=== PATIENT | male | born 1960 | race Caucasian/White ===

== ENCOUNTER 2024-10-11 11:10 | Emergency (ER) | payer MEDICARE, MEDICAID, SELFPAY ==
[2024-10-11] VITALS (30 sets, daily range): BP systolic 121–152; BP diastolic 32–116; PULSE 54–119; RESP 6–25; TEMP 36.9; O2SAT 94–99
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
[2024-10-11 11:36] LABS: Abs Immature Grans 0.02 10^3/uL (0.0-0.06); HCT 36.0 % (40.0-50.0); HGB 12.6 g/dL (13.5-17.5); Immature Grans % 0.3 %; MCH 31.1 pg (27.0-33.0); MCHC 35.0 % (32.0-36.0); MCV 89 fL (80-95); MPV 9.6 fL (8.0-11.0); Platelet Count 227 10^3/uL (130-400); RBC 4.05 10^6/uL (4.36-5.78); RDW 12.2 % (11.8-14.1); RDW-SD 39.7 fL; WBC 5.90 10^3/uL (4.4-10.8)
[2024-10-11 11:47] LABS: INR 1.1 (0.9-1.1); PTT Activated 24.3 sec (20.6-30.2); Prothrombin Time 10.9 sec (9.1-11.1)
[2024-10-11 11:50] LABS: ALT 24 U/L (16-63); AST 15 U/L (15-37); Albumin 3.8 g/dL (3.4-5.0); Alkaline Phosphatase 81 U/L (46-116); Anion Gap 8.6 mmol/L (3-11); BUN 9 mg/dL (7-18); Bilirubin, Total 0.5 mg/dL (0.2-1.0); CO2 27.4 mmol/L (21.0-32.0); Calcium 9.0 mg/dL (8.5-10.1); Chloride 106 mmol/L (98-107); Estimated GFR 94.19 (mL/min/1.73m2); Glucose 90 mg/dL (74-106); Lipase 24 U/L (<78); Potassium 3.2 mmol/L (3.5-5.1); Sodium 142 mmol/L (136-145); Total Protein 6.6 g/dL (6.4-8.2)
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
--- NOTE | 2024-10-11 12:00 | DI.RAD_ITS ---
Exam(s) XR SHOULDER RT COMPLETE 2+V EXAM: XR SHOULDER RT COMPLETE 2+V CLINICAL HISTORY: right shoulder pain, wonky findings. TECHNIQUE: 2D digital imaging was performed. COMPARISON: No exams were available for comparison FINDINGS: Five views No evidence of fracture or dislocation. Very small calcifications noted in soft tissues adjacent to the greater tuberosity which has more the appearance of tendon calcification than a fracture fragment. There is mild diminution of the subacromial space. There are moderate degenerative changes in the glenohumeral joint including an osteophyte on the inferior articular surface of the humeral head. There is a sclerotic bone lesion in the humeral neck which is probably a benign bone island There is no dislocation of the ipsilateral AC joint nor fracture of the clavicle. However, there is an irregularity of the acromion noted. I suspect this is most probably incidental os acromiale, but given the trauma and pain in the right shoulder 1 might consider further imaging with CT scan. IMPRESSION: Findings as above. Correlation with any pain over the acromion recommended. If clinically indicated follow-up CT scan can be performed to differentiate acromial fracture from os acromiale in this acute trauma setting DATA REPOSITORY: RADIATION DOSE DELIVERED:
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
== END 2024-10-11 14:54 | disposition home or self-care (01) ==
PROVIDERS: Emergency Provider Student in an Organized Health Care Education/Training Program; PCP Internal Medicine
DX: S40.011A Contusion of right shoulder, initial encounter (principal); R51.9 Headache, unspecified; V84.5XXA Driver of special agricultural vehicle injured in nontraffic accident, initial encounter
CPT/HCPCS: 36415; 80053; 83690; 99284; 70450; 70486; 71046; 72125; 73030; 73200; 85025; 85610; 85730